=== PATIENT | female | born 1980 | race Caucasian/White ===

== ENCOUNTER 2018-11-27 11:38 | Emergency (ER) | payer MEDICARE, MEDICAID ==
[~2018-11-27] VITALS: Ht 162.6 cm; Wt 80.3 kg
[2018-11-27] MEDS ORDERED: normal saline 1000ML IV soln IVB ONE (13:45)
[2018-11-27 14:12] LABS: BASOPHILS # (AUTO) 0.1 X10'3 (0-0.2); BASOPHILS % (AUTO) 0.5 % (0-1); EOSINOPHILS % (AUTO) 0.5 % (0-6); HEMATOCRIT 48.5 % (35.0-45.0); HEMOGLOBIN 16.4 g/dl (12.0-16.0); LYMPHOCYTES # (AUTO) 1.3 X10'3 (1.1-4.8); LYMPHOCYTES % (AUTO) 11.5 % (21-51); MEAN CORPUSCULAR HEMOGLOBIN 30.6 PG (27.0-31.0); MEAN CORPUSCULAR HGB CONC 33.7 g/dL (33.0-36.5); MEAN CORPUSCULAR VOLUME 90.7 FL (78-98); MEAN PLATELET VOLUME 9.1 FL (7.4-10.4); MONOCYTES # (AUTO) 1.6 X10'3 (0-0.9); MONOCYTES % (AUTO) 14.4 % (2-12); NEUTROPHILS % (AUTO) 73.1 % (42-75); PLATELET COUNT 257 X10'3 (140-440); RED BLOOD COUNT 5.35 X10'6 (4.20-5.60); RED CELL DISTRIBUTION WIDTH 13.4 % (11.5-14.5); WHITE BLOOD COUNT 10.9 X10'3 (4.5-11.0)
[2018-11-27] MEDS ORDERED: BENZ-16 PO (14:40)
[2018-11-27] MEDS ORDERED: TAM75C PO (14:40)
[2018-11-27 14:42] LABS: CLARITY,URINE CLOUDY (Clear); COLOR,URINE YELLOW (Yellow); GLUCOSE, URINE NEGATIVE (Neg); KETONES,URINE TRACE mg/dl (Neg); LEUKOCYTE ESTERASE ,URINE NEGATIVE (Neg); NITRITES, URINE NEGATIVE (Neg); OCCULT BLOOD,URINE NEGATIVE (Neg); PROTEIN,URINE 30 mg/dl (Neg)
[2018-11-27 14:56] LABS: UA COLLECTION TYPE CLN CATCH MIDSTREAM
[2018-11-27 14:59] LABS: SQUAMOUS EPITHELIAL CELL,UR MANY /LPF (FEW)
[2018-11-27 15:00] LABS: MUCUS STRANDS MODERATE /LPF (Neg)
[2018-11-27 15:00] LABS: ALANINE AMINOTRANSFERASE 79 U/L (12-78); ALBUMIN 3.7 G/DL (3.4-5.0); ALKALINE PHOSPHATASE 76 IU/L (46-116); ANION GAP 12 (8-16); ASPARTATE AMINO TRANSFERASE 50 U/L (10-37); BILIRUBIN,TOTAL 0.3 MG/DL (0.1-1.0); BLOOD UREA NITROGEN 11 MG/DL (7-18); BUN/CREATININE RATIO 10.9 (6.6-38.0); CALCIUM 9.4 MG/DL (8.5-10.1); CHLORIDE 104 MMOL/L (99-107); CREATININE 1.01 MG/DL (0.40-0.90); GLUCOSE 105 MG/DL (70-104); POTASSIUM 3.7 MMOL/L (3.5-5.1); SODIUM 142 MMOL/L (135-145); TOTAL CARBON DIOXIDE 26.2 MMOL/L (24-32); TOTAL PROTEIN 7.4 G/DL (6.4-8.2); eGFR 61 ML/MIN
[2018-11-27 15:09] LABS: CAL OXALATE CRYSTALS 1+ /HPF (NEGATIVE)
[2018-11-27 15:10] LABS: WBC,URINE 0-4 /HPF (0-4)
[2018-11-27 15:13] VITALS: BP 143/97
[2018-11-27 15:22] LABS: BACTERIA,URINE 1+ /HPF (Neg); RBC,URINE 0-2 /HPF (0-2)
== END 2018-11-27 15:16 | disposition home or self-care (01) ==
LOC: ER 11:39
DX: J10.1 Influenza due to other identified influenza virus with other respiratory manifestations (principal); G35 Multiple sclerosis
CPT/HCPCS: 36415; 71046; 80053; 81001; 85025; 87502; 87503; 93005; 99284; J7030

== ENCOUNTER 2020-01-01 09:43 | Day surgery (SDC) | payer MEDICARE, MEDICAID ==
[~2020-01-01] VITALS: Ht 162.6 cm; Wt 77.0 kg
[2020-01-01 11:02] VITALS: BP 136/88
--- NOTE | 2020-01-01 11:15 | NUR ---
3F DUAL LUMEN MIDLINE PLACED TO RIGHT BASILIC VEIN X'S 1 ATTEMPT USING ULTRASOUND GUIDANCE, TIP ENDING MIDAXILLARY. BOTH PORTS DRAW BLOOD AND FLUSH WITHOUT DIFFICULTY, PLACED BY Miguel MOBLEY PICC RN
== END 2020-01-03 08:28 | disposition home or self-care (01) ==
LOC: SSTAY O 09:43 → MED 3N 09:53 → SSTAY O 01-03 08:28
PROVIDERS: ATTEND Psychiatry & Neurology Neurology
PROC: 05HB33Z Insertion of Infusion Device into Right Basilic Vein, Percutaneous Approach (ICD-10-PCS; principal; 2020-01-01)
DX: Z45.2 Encounter for adjustment and management of vascular access device (principal); G35 Multiple sclerosis
CPT/HCPCS: 36410; 76937

== ENCOUNTER → 2020-07-20 | Day surgery (SDC) | payer MEDICARE, MEDICAID ==
[~2020-07-20] MED LIST: BACL20TA7 PO; BUPR75TA12 PO; BUTA1TAB54 PO; DIAZ-351 PO; DIME240C2 PO; FAMO20TA8 PO; IBUP-1986 PO; LAMO200T10 PO; LEVO75TA PO; LEVO88TA2 PO; LINA145C PO; PANT20TA18 PO; TOPI50TA24 PO; [UNRECOGNIZED DRUG - CODE] IV
--- NOTE | 2020-07-20 08:58 | NUR ---
2F SINGLE LUMEN MIDLINE PLACED TO LEFT CEPHALIC VEIN X'S 1 ATTEMPT WITHOUT DIFFICULTY USING ULTRASOUND GUIDANCE. TIP ENDS MID-AXILLARY, FLUSHES WITHOUT DIFFICULTY. Miguel MOBLEY PICC RN
[2020-07-20 09:05] VITALS: BP 165/108
== END | disposition home or self-care (01) ==
LOC: EDSTATUS 07:32 → SSTAY O 07:35
PROVIDERS: ATTEND Nurse Practitioner Family
PROC: 05HD33Z Insertion of Infusion Device into Right Cephalic Vein, Percutaneous Approach (ICD-10-PCS; principal; 2020-07-20)
DX: G35 Multiple sclerosis (principal); Z88.5 Allergy status to narcotic agent
CPT/HCPCS: 36410; 76937

== ENCOUNTER 2021-04-11 15:19 | Emergency (ER) | payer MEDICARE, MEDICAID ==
[~2021-04-11] VITALS: Ht 162.6 cm; Wt 72.0 kg
[2021-04-11] MEDS ORDERED: ondansetron/PF 4mg/2ml inj IV ONE (15:35)
[2021-04-11] MEDS ORDERED: morphine 4 MG/ML inj SYRINge IV ONE (15:35)
[2021-04-11] MEDS ORDERED: normal saline 1000ML IV soln IVB ONE (15:35)
[2021-04-11 15:55] LABS: BASOPHILS # (AUTO) 0.1 X10'3 (0-0.2); BASOPHILS % (AUTO) 1.5 % (0-1); EOSINOPHILS # (AUTO) 0.2 X10'3 (0-0.9); EOSINOPHILS % (AUTO) 2.6 % (0-6); HEMATOCRIT 43.7 % (35.0-45.0); HEMOGLOBIN 14.7 g/dl (12.0-16.0); LYMPHOCYTES % (AUTO) 27.6 % (21-51); MEAN CORPUSCULAR HEMOGLOBIN 31.8 PG (27.0-31.0); MEAN CORPUSCULAR HGB CONC 33.8 g/dL (33.0-36.5); MEAN CORPUSCULAR VOLUME 94.1 FL (78-98); MONOCYTES # (AUTO) 0.4 X10'3 (0-0.9); NEUTROPHILS # (AUTO) 4.4 X10'3 (1.8-7.7); NEUTROPHILS % (AUTO) 62.3 % (42-75); PLATELET COUNT 313 X10'3 (140-440); RED BLOOD COUNT 4.64 X10'6 (4.20-5.60); RED CELL DISTRIBUTION WIDTH 13.5 % (11.5-14.5); WHITE BLOOD COUNT 7.1 X10'3 (4.5-11.0)
[2021-04-11 16:14] LABS: ALANINE AMINOTRANSFERASE 19 U/L (12-78); ALBUMIN 4.6 G/DL (3.4-5.0); ALBUMIN/GLOBULIN RATIO 1.3 (1.1-1.5); ALKALINE PHOSPHATASE 80 IU/L (46-116); ANION GAP 11 (8-16); ASPARTATE AMINO TRANSFERASE 15 U/L (10-37); BILIRUBIN,TOTAL 0.5 MG/DL (0.1-1.0); BLOOD UREA NITROGEN 10 MG/DL (7-18); BUN/CREATININE RATIO 9.5 (6.6-38.0); CALCIUM 9.4 MG/DL (8.5-10.1); CHLORIDE 104 MMOL/L (99-107); CREATININE 1.05 MG/DL (0.40-0.90); GLUCOSE 92 MG/DL (70-104); LIPASE 165 U/L (73-393); POTASSIUM 3.9 MMOL/L (3.5-5.1); SODIUM 141 MMOL/L (135-145); TOTAL CARBON DIOXIDE 25.9 MMOL/L (24-32); TOTAL PROTEIN 8.2 G/DL (6.4-8.2); eGFR 57 ML/MIN
[2021-04-11 17:43] LABS: CLARITY,URINE SLIGHTLY CLOUDY (Clear); COLOR,URINE STRAW (Yellow); GLUCOSE, URINE NEGATIVE (Neg); KETONES,URINE NEGATIVE (Neg); LEUKOCYTE ESTERASE ,URINE NEGATIVE (Neg); NITRITES, URINE NEGATIVE (Neg); OCCULT BLOOD,URINE NEGATIVE (Neg); PROTEIN,URINE NEGATIVE (Neg); URINE HCG NEGATIVE (NEG); UROBILINOGEN,URINE 0.2 E.U/dL (0.2-1.0)
[2021-04-11 17:46] LABS: UA COLLECTION TYPE VOIDED
[2021-04-11 17:54] LABS: SQUAMOUS EPITHELIAL CELL,UR MANY /LPF (FEW)
[2021-04-11 17:55] LABS: BACTERIA,URINE 1+ /HPF (Neg); RBC,URINE NONE SEEN /HPF (0-2); WBC,URINE 0-4 /HPF (0-4)
[2021-04-11] MEDS ORDERED: iohexol 300mg/ml 100ml inj. ONE (18:59)
[2021-04-11] MEDS ORDERED: CefTRIAXone 1000mg IM Kit (w/lidocaine diluent) IM STA (21:18)
[2021-04-11] MEDS ORDERED: azithromycin 250mg tablet PO ONE (21:20)
[2021-04-11] MEDS ORDERED: CEFD300C21 PO (21:23)
[2021-04-11 22:25] VITALS: BP 153/99
== END 2021-04-11 23:22 | disposition home or self-care (01) ==
LOC: ER 15:19
DX: N39.0 Urinary tract infection, site not specified (principal); R31.9 Hematuria, unspecified; R11.2 Nausea with vomiting, unspecified; G35 Multiple sclerosis; Z87.442 Personal history of urinary calculi; Z86.73 Personal history of transient ischemic attack (TIA), and cerebral infarction without residual deficits; Z88.8 Allergy status to other drugs, medicaments and biological substances; Z79.899 Other long term (current) drug therapy
CPT/HCPCS: 36415; 74177; 80053; 81001; 81025; 83690; 85025; 87491; 87591; 96361; 96372; 96374; 99285; J0696; J2405; J7030; Q9967

== ENCOUNTER 2022-09-29 10:01 | Day surgery (SDC) | payer MEDICARE, MEDICAID ==
[~2022-09-29 10:01] MED LIST changes: +BUPR-297 PO; -BUPR75TA12 PO
--- NOTE | 2022-09-29 10:20 | NUR ---
Geneva PICC RN in with patient.
== END 2022-09-29 11:10 | disposition home or self-care (01) ==
LOC: SSTAY O 10:01
PROVIDERS: ATTEND Nurse Practitioner Family
DX: G35 Multiple sclerosis (principal); N18.9 Chronic kidney disease, unspecified; I87.8 Other specified disorders of veins; Z88.5 Allergy status to narcotic agent; I10 Essential (primary) hypertension; Z90.710 Acquired absence of both cervix and uterus; Z79.899 Other long term (current) drug therapy; Z82.3 Family history of stroke
CPT/HCPCS: 36410; 76937; 76942; C1751

== ENCOUNTER 2022-09-29 17:33 | Emergency (ER) | payer MEDICARE, MEDICAID ==
[~2022-09-29] VITALS: Ht 162.6 cm; Wt 70.5 kg
[2022-09-29 18:08] VITALS: BP 159/99
[2022-09-29] MEDS ORDERED: ketorolac trometh inj. 60 MG/2 ML VIAL IM ONE (19:00)
== END 2022-09-29 19:20 | disposition home or self-care (01) ==
LOC: ER 17:34
DX: T82.9XXA Unspecified complication of cardiac and vascular prosthetic device, implant and graft, initial encounter (principal); Z88.5 Allergy status to narcotic agent
CPT/HCPCS: 96372; 99283; J1885; 36410; 76937; 76942; C1751

== ENCOUNTER 2024-03-17 08:50 | Outpatient (CLI) | payer MEDICARE, MEDICAID ==
[~2024-03-17 08:50] MED LIST changes: +BUTA1TAB48 PO; -BUTA1TAB54 PO; +TOPI-95 PO; -TOPI50TA24 PO
== END 2024-03-17 23:59 | disposition home or self-care (01) ==
LOC: RAD 08:50
PROVIDERS: ATTEND Nurse Practitioner Family
DX: M67.431 Ganglion, right wrist (principal); R22.0 Localized swelling, mass and lump, head
CPT/HCPCS: 76882

== ENCOUNTER → 2024-05-06 | Day surgery (SDC) | payer MEDICARE, MEDICAID | END | disposition home or self-care (01) | LOC: SSTAY O 09:06 | PROVIDERS: ATTEND Nurse Practitioner Family | DX: I87.8 Other specified disorders of veins (principal) | CPT/HCPCS: 36410; 76942; C1751; 76937 ==

== ENCOUNTER 2025-03-03 19:44 | Emergency (ER) | payer MEDICARE, MEDICAID ==
[~2025-03-03] VITALS: Ht 162.6 cm; Wt 81.7 kg
--- NOTE | 2025-03-03 19:59 | Physician Documentation ---
History of Present Illness ~ General Stated Complaint: REQUESTING SCANS OK to notify your PCP?: Yes Primary Medical Doctor: AMBERLY Source: patient Mode of Arrival: POV Exam Limitations: no limitations History of Present Illness Initial Comments 44-year-old female presents for a flare-up of her MS. She is having bilateral numbness and tingling in her hands and feet. She is requesting MRI of her brain, C-spine, thoracic without contrast as well as high dose steroids. She reports she has spoke to her neurologist Jasbir Hansen at [facility] and he is requesting this information and would like to be called for consult/results. Medication Reconciliation Allergies: Coded Allergies: hydrocodone (Verified Allergy, Severe, 03/03/25) Scheduled Baclofen (Baclofen), 1 TAB PO BID, (Reported) Bupropion HCl (Bupropion HCl), 1 TAB PO BID, (Reported) Butalb/Acetaminophen/Caffeine (Vnpisp-Yciylcus-Rtmo 50-325-40), 1 TAB PO DAILY, (Reported) Diazepam (Diazepam), 1 TAB PO HS, (Reported) Dimethyl Fumarate (Tecfidera), 1 CAP PO BID, (Reported) Famotidine (Famotidine), 1 TAB PO QAM, (Reported) Lamotrigine (Lamotrigine), 1 TAB PO HS, (Reported) Levothyroxine Sodium (Synthroid), 1 TAB PO DAILY, (Reported) Levothyroxine Sodium* (Synthroid*), 1 TAB PO DAILY, (Reported) Methylprednisolone Sod Succ (Methylprednisolone Sod Succ), 1,000 MG IV DAILY, (Reported) Pantoprazole Sodium (Protonix), 1 TAB PO DAILY, (Reported) Topiramate (Topiramate), 1 TAB PO DAILY, (Reported) Scheduled PRN Ibuprofen (Ibuprofen), 1 TAB PO BID PRN for pain, (Reported) Linaclotide (Linzess), 1 TAB PO DAILY PRN for IBS, (Reported) Past Medical History Past Medical History: *INCOME TAX EXPERT*, CVA/TIA/Stroke, Multiple Sclerosis Past Surgical History: no surgical history Patient History: FH: CVA (cerebrovascular accident) FATHER MOTHER, , Cause: Cancer Alcohol Use: None Drug Use: none Lives with: Spouse Lives In: Home Review of Systems All Other Systems at this time: Reviewed and Negative Physical Exam Physical Exam Vital Signs: CHUCK Vital Signs have been reviewed: Yes Pulse Oximetry Reflects: adequate oxygenation Physical Exam General: Alert, no distress. HEENT: No injection, moist mucous membranes. Neck: Full range of motion. Respiratory: No respiratory distress, equal chest rise and fall. Chest: No accessory muscle use. Cardiovascular: Regular rate and rhythm. Gastrointestinal: Nondistended. Extremities: Normal range of motion, no deformity. Neurologic: Oriented x4. Psychiatric: Normal mood and affect. Skin: Normal color, warm and dry. Progress Results/Orders Results/Orders Vital Signs 03/03/25 19:51 Temp 97.0 Pulse 78 Resp 16 B/P (MAP) 160/101 Pulse Ox 99 O2 Flow Rate 0 Departure Referrals: NO PRIMARY CARE PROVIDER (PCP) Additional Comment Medical Screen Exam This patient recieved a medical screening examination. After reviewing the individual's medical complaints with presenting symptoms and performing an gerard ropriate physical examination, it was determined that no immediate life- threatening emergency medical condition is present. This individual is also not a women having contractions. [facility] Mar 03, 2025 19:59
[2025-03-03 23:50] VITALS: BP 134/91; PULSE 70; RESP 14; TEMP 97; O2SAT 97
== END 2025-03-04 00:43 | disposition left against medical advice (07) ==
LOC: ER 19:45
DX: R20.0 Anesthesia of skin (principal); R20.2 Paresthesia of skin; Z88.5 Allergy status to narcotic agent; Z86.73 Personal history of transient ischemic attack (TIA), and cerebral infarction without residual deficits; Z79.899 Other long term (current) drug therapy
CPT/HCPCS: 99284